=== PATIENT | male | born 1990 | race Two or more races ===

== ENCOUNTER 2022-03-08 00:04 | Emergency (ER) | payer OTHER, SELFPAY ==
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
[2022-03-08 00:11] VITALS: BP 128/75; BP 150/94; PULSE 71; PULSE 98; RESP 18; TEMP 36.8; O2SAT 97; O2SAT 98; BMI 28.3
[2022-03-08 00:15] VITALS: BP 128/75; PULSE 71; RESP 18; TEMP 36.8; O2SAT 97
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
[2022-03-08] MEDS: Diphth,Pertus(ACell),Tet Adult 0.5 ML SYRINGE IM (00:50)
[2022-03-08 02:00] VITALS: BP 119/68; PULSE 77; RESP 16; TEMP 37.1; O2SAT 96
[2022-03-08] MEDS: Lidocaine HCl 2%/Epi 1:100,000 20 ML VIAL INFILTRATI (02:27)
[2022-03-08] MEDS: Amoxicillin/Potassium Clav 875 MG TABLET PO (03:08)
[2022-03-08] MEDS: Acetaminophen 325 MG TABLET 650 MG PO (03:08)
[2022-03-08 03:18] VITALS: BP 119/66; PULSE 75; RESP 18; TEMP 36.9; O2SAT 97
== END 2022-03-08 03:23 | disposition home or self-care (01) ==
PROVIDERS: Emergency Provider Emergency Medicine
DX: S01.511A Laceration without foreign body of lip, initial encounter (principal); S13.4XXA Sprain of ligaments of cervical spine, initial encounter; S60.512A Abrasion of left hand, initial encounter; S06.0X0A Concussion without loss of consciousness, initial encounter; R51.9 Headache, unspecified; M54.2 Cervicalgia; V43.52XA Car driver injured in collision with other type car in traffic accident, initial encounter; Y93.9 Activity, unspecified; Y92.410 Unspecified street and highway as the place of occurrence of the external cause; Y99.9 Unspecified external cause status; Z87.891 Personal history of nicotine dependence; Z79.899 Other long term (current) drug therapy
CPT/HCPCS: 12013; 70450; 72125; 73120; 90471; 90715; 99284